=== PATIENT | male | born 1965 | race Caucasian/White ===

== ENCOUNTER → 2021-12-15 | Outpatient (CLI) | payer OTHER ==
[2015-03-20 11:00] VITALS: BP 136/84
[~2021-12-15] MED LIST: AMLO2.5T5 PO; CLON0.5T PO; GABA600T7 PO; LISI1TAB35 PO; OXYC1TAB19 PO; TAMS0.4C97 PO
--- NOTE | 2021-12-15 15:00 | KCIC ---
XR LUMBAR SPINE 4+V, XR HIP (WITH OR WITHOUT PELVIS) 1 VIEW Clinical Indication: Reason: Low back pain, pain that radiates into Rt. hip. / Spl. Instructions: / History: Comparison: None. Findings: 5 lumbar type vertebral bodies. The vertebral body height and alignment are maintained. Atherosclerot ic abdominal aorta. There is mild endplate spurring of the lumbar spine. The disc spaces are maintain ed. There is no pars defect on the oblique views. There is no acute pelvic fracture. There is mild arthropathy of the hips for patient age. There is no dislocation. The sacroiliac joints are symmetric. Tiny phleboliths right pelvis. IMPRESSION: 1. Mild arthropathy of the bilateral hips. 2. No significant degenerative changes of the lumbar spine. Electronically signed by: Michael Sahu MD (12/15/2021 2:57 PM) [id number]
== END ==
LOC: KCIC 09:33
PROVIDERS: ATTEND Physician Assistant Medical
DX: M47.818 Spondylosis without myelopathy or radiculopathy, sacral and sacrococcygeal region (principal); M12.851 Other specific arthropathies, not elsewhere classified, right hip; M12.852 Other specific arthropathies, not elsewhere classified, left hip; M46.06 Spinal enthesopathy, lumbar region; I70.0 Atherosclerosis of aorta; I86.2 Pelvic varices
CPT/HCPCS: 72110; 73521

== ENCOUNTER → 2021-12-15 | Outpatient (CLI) | payer OTHER ==
[2015-03-20 11:00] VITALS: BP 136/84
[~2021-12-15] MED LIST changes: +GADOTERATE 7.5 MMOL/15ML VIAL. IVP ONE
--- NOTE | 2021-12-15 10:43 | KCIC ---
MRI of the Brain without and with Contrast 12/15/2021 Clinical History: History of TIA 2 years ago. Numbness in extremities, fatigue, tunnel vision. Patien davion has a sister with multiple sclerosis. Technique: Unenhanced T1-weighted and FLAIR sagittal and axial and gradient echo, T2-weighted, and di ffusion-weighted axial images of the brain were obtained. After the intravenous administration of 15 cc of Clariscan, enhanced T1-weighted axial and coronal images of the brain were obtained. Findings: No previous studies are available for comparison. The ventricles and sulci are within normal limits in size and configuration. Patchy and several small focal areas of increased signal intensity are seen within the periventricular and subcortical white matter of both cerebral hemispheres on the FLAIR and T2-weighted images. These most likely represent areas of very mild small vessel ischemic disease. 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 These measure 3 to 4 mm in size. No acute parenchymal abnormality is seen. No extra-axial fluid collection is noted. There is no MRI e vidence of acute ischemia/infarction. No area of abnormal contrast enhancement is seen. The orbits ar e within normal limits. Mild mucosal thickening is seen scattered throughout the paranasal sinuses. Normal flow voids are see n within the major vascular structures surrounding the brain parenchyma. A 1.2 cm oval-shaped low sig nal intensity lesion is seen within the left frontal parietal scalp on the T2-weighted images which l ikely represents a sebaceous cyst. IMPRESSION: No acute parenchymal abnormality is seen. Electronically signed by: Ezequiel Curry MD (12/15/2021 10:41 AM) [id number]
== END ==
LOC: KCIC MRI 08:13
PROVIDERS: ATTEND Family Medicine
DX: I63.9 Cerebral infarction, unspecified (principal); G93.89 Other specified disorders of brain; J34.89 Other specified disorders of nose and nasal sinuses; R20.2 Paresthesia of skin; Z82.0 Family history of epilepsy and other diseases of the nervous system
CPT/HCPCS: 70553; A9575

== ENCOUNTER → 2021-12-24 | Outpatient (CLI) | payer OTHER ==
[2015-03-20 11:00] VITALS: BP 136/84
[~2021-12-24] MED LIST changes: +BUPIVACAINE MPF 0.5% 10 ML VIAL. IJ ONE; -GADOTERATE 7.5 MMOL/15ML VIAL. IVP ONE; +IOHEXOL 300 MG/ML 50 ML VIAL. INT ART ONE; +LIDOCAINE 1% Multi-Dose 20 ML VIAL. INJ ONE; +TRIAMCINOLONE PRES.FREE 40 MG/ML VIAL. INT ART ONE
--- NOTE | 2021-12-24 09:42 | RAD ---
EXAM: Fluoroscopic guided therapeutic bilateral hip injection. HISTORY: Bilateral hip pain. TECHNIQUE: The risks of the procedure were discussed with the patient and written and verbal consent was obtained. A time out was performed. Fluoroscopic imaging of the right hip was performed and a sit e overlying the joint space was selected for needle entry. The skin overlying this region was sterilely prepped, draped and infiltrated with 1% lidocaine. A spi nal needle was then advanced into the joint space with fluoroscopic guidance. Appropriate needle tip positioning was confirmed with injection of 3 cc Isovue 300 contrast. Subsequently, the requested andry ution containing 1 cc bupivacaine and 40 mg triamcinolone was injected into the joint space. The need le was removed and a sterile bandage was placed at the needle entry site. Using the same technique and same requested solution, therapeutic contralateral hip injection was per formed. The needle was removed and a sterile bandage was placed at the needle entry site. Patient cyndi erated the procedure without difficulty and was discharged in stable condition. The total fluoroscopy time was 0.07 minutes. For fluoroscopic images were obtained. IMPRESSION: Fluoroscopic guided bilateral therapeutic hip injection. Electronically signed by: Hannah Brown MD (12/24/2021 9:39 AM) [id number]
== END | disposition home or self-care (01) ==
LOC: RAD 07:57
PROVIDERS: ATTEND Family Medicine
DX: M25.552 Pain in left hip (principal); M25.551 Pain in right hip; Z79.899 Other long term (current) drug therapy; Z72.89 Other problems related to lifestyle
CPT/HCPCS: 20610; 77002; J3301; J3490; Q9967